=== PATIENT | female | born 1975 | race Caucasian/White ===

== ENCOUNTER 2017-01-22 15:59 | Emergency (ER) | payer MEDICAID ==
[~2017-01-22] VITALS: Ht 160 cm; Wt 159.1 kg
[2017-01-22 16:53] LABS: INFLUENZA TYPE B NEGATIVE FOR TYPE B (NEGATIVE)
[2017-01-22 17:09] VITALS: BP 118/68
== END 2017-01-22 17:25 | disposition home or self-care (01) ==
LOC: EMS 16:05
DX: J06.9 Acute upper respiratory infection, unspecified (principal); F17.210 Nicotine dependence, cigarettes, uncomplicated; F32.9 Major depressive disorder, single episode, unspecified; G89.29 Other chronic pain; M54.9 Dorsalgia, unspecified
CPT/HCPCS: 87804; 99284; 99406

== ENCOUNTER 2017-02-15 07:08 | Emergency (ER) | payer MEDICAID ==
[~2017-02-15] VITALS: Ht 160 cm; Wt 143.2 kg
[2017-02-15] MEDS ORDERED: IBUPROFEN 600 MG TABLET PO ONE (07:30)
[2017-02-15 08:37] VITALS: BP 140/82
== END 2017-02-15 09:13 | disposition home or self-care (01) ==
LOC: EMS 07:09
DX: M79.672 Pain in left foot (principal); F32.9 Major depressive disorder, single episode, unspecified; F17.210 Nicotine dependence, cigarettes, uncomplicated
CPT/HCPCS: 99284

== ENCOUNTER 2017-03-18 10:31 | Emergency (ER) | payer MEDICAID ==
[~2017-03-18] VITALS: Ht 160 cm; Wt 145.4 kg
[2017-03-18 10:33] VITALS: BP 125/70
[2017-03-18] MEDS ORDERED: HYDROCODONE/ACETAMINOPHEN 5-325 MG TABLET PO ONE (11:45)
== END 2017-03-18 13:19 | disposition home or self-care (01) ==
LOC: EMS 10:34
DX: T16.2XXA Foreign body in left ear, initial encounter (principal); M62.830 Muscle spasm of back; M79.1 Myalgia; E66.9 Obesity, unspecified; F17.210 Nicotine dependence, cigarettes, uncomplicated; Z68.43 Body mass index [BMI] 50.0-59.9, adult; V49.88XA Car occupant (driver) (passenger) injured in other specified transport accidents, initial encounter; Y93.89 Activity, other specified; Y92.410 Unspecified street and highway as the place of occurrence of the external cause; Y99.8 Other external cause status
CPT/HCPCS: 69200; 99284